=== PATIENT | female | born 1940 | race African-American/Black ===

== ENCOUNTER 2016-05-30 19:22 | Inpatient (IN) | payer MEDICARE, BC, MEDICAID ==
[~2016-05-30] VITALS: Ht 165.1 cm; Wt 77.8 kg
[~2016-05-30 19:22] MED LIST: AMLO1TAB36 PO; CIP250 PO; GABA-531 PO; MORP15T PO; ROSU20 PO; TRAM100C2 PO
[2016-05-30] MEDS ORDERED: ONDANSETRON HCL 4 MG/2 ML VIAL IVP ONE (20:45)
[2016-05-30] MEDS ORDERED: HYDROmorphone 2 MG/ML SYRINGE IVP ONE ×2 (20:45→22:30)
[2016-05-30 21:23] LABS: BASOPHILS % (AUTO) 0.4 % (0.0-2.0); EOSINOPHILS % (AUTO) 0.6 % (1.0-6.0); HEMATOCRIT 37.3 % (36-46); HEMOGLOBIN 12.1 g/dL (12.0-16.0); LYMPHOCYTES % (AUTO) 17.9 % (22.0-44.0); MEAN CORPUSCULAR HEMOGLOBIN 29.9 pg (26.0-34.0); MEAN CORPUSCULAR HGB CONC 32.6 G/dL (31.0-37.0); MEAN CORPUSCULAR VOLUME 92 fL (80-100); MONOCYTES # (AUTO) 1.6 K/uL (0.1-1.0); MONOCYTES % (AUTO) 14.5 % (2.0-9.0); NEUTROPHILS # (AUTO) 7.4 K/uL (1.8-7.7); NEUTROPHILS % (AUTO) 66.6 % (40.0-70.0); PLATELET COUNT (AUTO) 271 K/uL (150-450); RED BLOOD CELL COUNT(AUTO) 4.06 MIL/uL (4.00-5.20); RED CELL DISTRIBUTION WIDTH 14.7 % (11.5-14.5); WHITE BLOOD COUNT (AUTO) 11.2 K/uL (4.5-11.0)
[2016-05-30 21:44] LABS: ANION GAP 7 mmol/L (8-16); CALCIUM, TOTAL 10.7 mg/dL (8.8-10.5); CARBON DIOXIDE 28 mmol/L (22-29); CHLORIDE 103 mmol/L (98-107); GLOMERULAR FILTR. RATE CALC > 60 mL/min (>60); POTASSIUM 3.4 mmol/L (3.5-5.1); SODIUM SERUM 138 mmol/L (136-145); UREA NITROGEN, BLOOD 14 mg/dL (7-18)
[2016-05-30 21:51] LABS: LACTIC ACID 0.8 mmol/L (0.4-2.0)
[2016-05-30 22:12] LABS: B-TYPE NATRIURETIC PEPTIDE 37 pg/mL (0-100)
[2016-05-30 22:13] LABS: ALANINE AMINOTRANSFERASE 157 U/L (12-78); ALBUMIN 3.1 g/dL (3.4-5.0); ASPARTATE AMINOTRANSFERASE 87 U/L (15-37); BILIRUBIN,TOTAL 0.6 mg/dL (0.1-1.0); CREATINE KINASE MB 0.9 ng/mL (0-5); CREATINE KINASE, TOTAL 155 U/L (26-192); TOTAL PROTEIN, SERUM 7.5 g/dL (6.4-8.2)
[2016-05-30] MEDS ORDERED: ACETAMINOPHEN 325 MG TABLET PO PRN (22:45)
[2016-05-30] MEDS ORDERED: POTASSIUM CHL 10 MEQ/WATER 50 ML IV PRN (22:45)
[2016-05-30] MEDS ORDERED: POTASSIUM CHLORIDE 20 MEQ ER TABLET PO PRN (22:45)
[2016-05-30] MEDS: ASPIRIN 81 MG CHEWABLE TABLET PO SCH (22:45)
[2016-05-30] MEDS ORDERED: MAGNESIUM HYDROXIDE SUSPENSION 30 ML UDCUP PO PRN (22:45)
[2016-05-30 23:56] VITALS: BP 169/76
[2016-05-31] MEDS: HEPARIN SODIUM,PORCINE 5,000 UNITS/ML VIAL SQ SCH ×5 (00:15→23:56)
[2016-05-31] MEDS: ASPIRIN 81 MG CHEWABLE TABLET PO SCH ×2 (00:15→21:00)
[2016-05-31] MEDS: OxyCODONE HCL/ACETAMINOPHEN 5-325 MG TABLET PO PRN ×4 (00:47→23:58)
[2016-05-31 05:25] VITALS: BP 103/60
[2016-05-31 07:46] LABS: ALANINE AMINOTRANSFERASE 133 U/L (12-78); ALBUMIN 2.9 g/dL (3.4-5.0); ANION GAP 7 mmol/L (8-16); ASPARTATE AMINOTRANSFERASE 62 U/L (15-37); BILIRUBIN,TOTAL 0.8 mg/dL (0.1-1.0); CALCIUM, TOTAL 10.7 mg/dL (8.8-10.5); CARBON DIOXIDE 29 mmol/L (22-29); CHLORIDE 108 mmol/L (98-107); CREATININE 0.89 mg/dL (0.60-1.30); GLOMERULAR FILTR. RATE CALC > 60 mL/min (>60); POTASSIUM 3.9 mmol/L (3.5-5.1); SODIUM SERUM 144 mmol/L (136-145); TOTAL PROTEIN, SERUM 7.2 g/dL (6.4-8.2); UREA NITROGEN, BLOOD 11 mg/dL (7-18)
[2016-05-31] MEDS: PANTOPRAZOLE SODIUM 40 MG DR TABLET PO SCH (08:34)
[2016-05-31] MEDS: DOCUSATE SODIUM 100 MG CAPSULE PO SCH ×2 (08:34→19:56)
[2016-05-31 08:42] VITALS: BP 111/57
[2016-05-31 11:55] VITALS: BP 122/59
[2016-05-31] MEDS: MORPHINE SULFATE 2 MG/ML SYRINGE IVP PRN (13:09)
[2016-05-31 15:46] VITALS: BP 134/64
[2016-05-31 20:11] VITALS: BP 132/70
[2016-06-01] VITALS (7 sets, daily range): BP systolic 134–158; BP diastolic 60–91
[2016-06-01] MEDS: MORPHINE SULFATE 2 MG/ML SYRINGE IVP PRN ×2 (07:40→15:42)
[2016-06-01] MEDS: HEPARIN SODIUM,PORCINE 5,000 UNITS/ML VIAL SQ SCH ×3 (08:00→23:53)
[2016-06-01 08:20] LABS: ALANINE AMINOTRANSFERASE 170 U/L (12-78); ALBUMIN 2.8 g/dL (3.4-5.0); ANION GAP 5 mmol/L (8-16); ASPARTATE AMINOTRANSFERASE 108 U/L (15-37); BILIRUBIN,TOTAL 0.7 mg/dL (0.1-1.0); CALCIUM, TOTAL 10.7 mg/dL (8.8-10.5); CARBON DIOXIDE 30 mmol/L (22-29); CHLORIDE 104 mmol/L (98-107); GLOMERULAR FILTR. RATE CALC > 60 mL/min (>60); SODIUM SERUM 139 mmol/L (136-145); UREA NITROGEN, BLOOD 11 mg/dL (7-18)
[2016-06-01] MEDS: DOCUSATE SODIUM 100 MG CAPSULE PO SCH ×2 (08:36→20:09)
[2016-06-01] MEDS: PANTOPRAZOLE SODIUM 40 MG DR TABLET PO SCH (08:36)
[2016-06-01 08:58] LABS: THYROID STIMULATING HORMONE 0.97 uIU/mL (0.36-3.74)
[2016-06-01] MEDS: SODIUM CHLORIDE 0.9% 1,000 ML IV SCH (15:41)
[2016-06-01] MEDS: OxyCODONE HCL/ACETAMINOPHEN 5-325 MG TABLET PO PRN ×2 (20:15→23:53)
[2016-06-02] MEDS: SODIUM CHLORIDE 0.9% 1,000 ML IV SCH ×2 (01:07→10:21)
[2016-06-02] MEDS: OxyCODONE HCL/ACETAMINOPHEN 5-325 MG TABLET PO PRN ×2 (03:55→08:56)
[2016-06-02 04:22] VITALS: BP 135/72
[2016-06-02 06:37] LABS: BASOPHILS % (AUTO) 0.2 % (0.0-2.0); EOSINOPHILS % (AUTO) 1.2 % (1.0-6.0); HEMATOCRIT 33.7 % (36-46); HEMOGLOBIN 10.7 g/dL (12.0-16.0); LYMPHOCYTES # (AUTO) 1.7 K/uL (1.0-4.8); LYMPHOCYTES % (AUTO) 22.4 % (22.0-44.0); MEAN CORPUSCULAR HEMOGLOBIN 29.2 pg (26.0-34.0); MEAN CORPUSCULAR HGB CONC 31.6 G/dL (31.0-37.0); MEAN CORPUSCULAR VOLUME 92 fL (80-100); MONOCYTES # (AUTO) 0.9 K/uL (0.1-1.0); MONOCYTES % (AUTO) 12.5 % (2.0-9.0); NEUTROPHILS # (AUTO) 4.8 K/uL (1.8-7.7); NEUTROPHILS % (AUTO) 63.7 % (40.0-70.0); PLATELET COUNT (AUTO) 298 K/uL (150-450); RED BLOOD CELL COUNT(AUTO) 3.66 MIL/uL (4.00-5.20); RED CELL DISTRIBUTION WIDTH 14.5 % (11.5-14.5); WHITE BLOOD COUNT (AUTO) 7.6 K/uL (4.5-11.0)
[2016-06-02 07:55] VITALS: BP 147/77
[2016-06-02 08:36] LABS: ALANINE AMINOTRANSFERASE 171 U/L (12-78); ALBUMIN 2.5 g/dL (3.4-5.0); ANION GAP 6 mmol/L (8-16); ASPARTATE AMINOTRANSFERASE 95 U/L (15-37); BILIRUBIN,TOTAL 0.4 mg/dL (0.1-1.0); CALCIUM, TOTAL 10.6 mg/dL (8.8-10.5); CARBON DIOXIDE 29 mmol/L (22-29); CHLORIDE 106 mmol/L (98-107); CREATININE 0.84 mg/dL (0.60-1.30); GLOMERULAR FILTR. RATE CALC > 60 mL/min (>60); POTASSIUM 4.3 mmol/L (3.5-5.1); SODIUM SERUM 141 mmol/L (136-145); TOTAL PROTEIN, SERUM 6.4 g/dL (6.4-8.2); UREA NITROGEN, BLOOD 11 mg/dL (7-18)
[2016-06-02] MEDS: DOCUSATE SODIUM 100 MG CAPSULE PO SCH (08:56)
[2016-06-02] MEDS: PANTOPRAZOLE SODIUM 40 MG DR TABLET PO SCH (08:57)
[2016-06-02] MEDS: HEPARIN SODIUM,PORCINE 5,000 UNITS/ML VIAL SQ SCH (09:00)
[2016-06-02 12:12] VITALS: BP 152/75
== END 2016-06-02 14:35 | disposition home or self-care (01) | DRG 552 ==
LOC: EMS 19:24 → 5S 22:50 → 6N 06-01 17:18
PROVIDERS: ADMIT Internal Medicine; ATTEND Internal Medicine
DX: S13.4XXA Sprain of ligaments of cervical spine, initial encounter (principal); E44.0 Moderate protein-calorie malnutrition; M48.02 Spinal stenosis, cervical region; R51 Headache; R29.6 Repeated falls; E87.6 Hypokalemia; E78.00 Pure hypercholesterolemia, unspecified; E78.5 Hyperlipidemia, unspecified; E83.52 Hypercalcemia; G89.29 Other chronic pain; I10 Essential (primary) hypertension; K80.20 Calculus of gallbladder without cholecystitis without obstruction; M54.5 Low back pain; R74.0 Nonspecific elevation of levels of transaminase and lactic acid dehydrogenase [LDH]; R73.9 Hyperglycemia, unspecified; M19.90 Unspecified osteoarthritis, unspecified site; R79.89 Other specified abnormal findings of blood chemistry; E04.1 Nontoxic single thyroid nodule; W01.0XXA Fall on same level from slipping, tripping and stumbling without subsequent striking against object, initial encounter; Z85.038 Personal history of other malignant neoplasm of large intestine; Z92.21 Personal history of antineoplastic chemotherapy; Z92.3 Personal history of irradiation; Z79.899 Other long term (current) drug therapy; Y93.89 Activity, other specified; Y92.89 Other specified places as the place of occurrence of the external cause; Y99.8 Other external cause status; Z68.28 Body mass index [BMI] 28.0-28.9, adult
CPT/HCPCS: 70450; 72125; 76536; 76700; 83605; 84443; 93005; 96374; 96375; 96376; 97116; 97161; 97530; 99285; J1170; J1644; J2270; J2405; J7030

== ENCOUNTER → 2016-11-11 | Outpatient (CLI) | payer MEDICARE, BC, MEDICAID ==
[~2016-11-11] MED LIST changes: -CIP250 PO; -ROSU20 PO
== END | disposition home or self-care (01) ==
LOC: RADPV 11:42
PROVIDERS: ATTEND Internal Medicine
DX: R60.0 Localized edema (principal)
CPT/HCPCS: 93970

== ENCOUNTER 2018-07-07 11:50 | Emergency (ER) | payer MEDICARE, BC ==
[~2018-07-07] VITALS: Ht 172.7 cm; Wt 84.1 kg
[2018-07-07] MEDS ORDERED: ACETAMINOPHEN 500 MG TABLET PO ONE (12:30)
[2018-07-07 15:06] VITALS: BP 116/78
== END 2018-07-07 15:08 | disposition home or self-care (01) ==
LOC: EMS 11:53
DX: S05.32XA Ocular laceration without prolapse or loss of intraocular tissue, left eye, initial encounter (principal); M25.512 Pain in left shoulder; M79.672 Pain in left foot; M25.532 Pain in left wrist; H11.32 Conjunctival hemorrhage, left eye; I10 Essential (primary) hypertension; E78.00 Pure hypercholesterolemia, unspecified; M19.90 Unspecified osteoarthritis, unspecified site; G89.29 Other chronic pain; Z88.6 Allergy status to analgesic agent; W01.0XXA Fall on same level from slipping, tripping and stumbling without subsequent striking against object, initial encounter; Y93.89 Activity, other specified; Y92.89 Other specified places as the place of occurrence of the external cause; Y99.8 Other external cause status
CPT/HCPCS: 73200

== ENCOUNTER 2018-09-14 15:30 | Emergency (ER) | payer MEDICARE, BC ==
[~2018-09-14] VITALS: Ht 172.7 cm; Wt 84.1 kg
[~2018-09-14 15:30] MED LIST changes: -MORP15T PO
[2018-09-14 15:33] VITALS: BP 143/68
== END 2018-09-14 16:20 | disposition left against medical advice (07) ==
LOC: EMS 15:33
DX: K46.9 Unspecified abdominal hernia without obstruction or gangrene (principal); Z53.21 Procedure and treatment not carried out due to patient leaving prior to being seen by health care provider